=== PATIENT | male | born 1945 | race Caucasian/White ===

== ENCOUNTER 2018-10-17 22:37 | Emergency (ER) | payer BC | END 2018-10-18 05:05 | disposition home or self-care (01) | LOC: E/R 22:37 | DX: S09.90XA Unspecified injury of head, initial encounter (principal); S19.9XXA Unspecified injury of neck, initial encounter; I10 Essential (primary) hypertension; R51 Headache; Y04.2XXA Assault by strike against or bumped into by another person, initial encounter | CPT/HCPCS: 70450; 71045; 72125; 99284-25 ==